=== PATIENT | female | born 1950 | race Caucasian/White ===

== ENCOUNTER → 2024-06-29 14:13 | Outpatient (REF) | payer MEDICARE, OTHER, SELFPAY | LOC: RAD 14:13 | PROVIDERS: ATTENDING PHYSICIAN Student in an Organized Health Care Education/Training Program | DX: M85.89 Other specified disorders of bone density and structure, multiple sites (principal); M85.80 Other specified disorders of bone density and structure, unspecified site | CPT/HCPCS: 77080 ==

== ENCOUNTER → 2024-08-26 11:09 | Outpatient (REF) | payer MEDICARE, OTHER, SELFPAY | LOC: RCS 11:09 | PROVIDERS: ATTENDING PHYSICIAN Student in an Organized Health Care Education/Training Program; FAMILY PHYSICIAN Student in an Organized Health Care Education/Training Program | DX: Z95.2 Presence of prosthetic heart valve (principal) | CPT/HCPCS: 93306 ==

== ENCOUNTER → 2024-09-10 11:23 | Outpatient (REF) | payer MEDICARE, OTHER, SELFPAY | LOC: RAD 11:23 | PROVIDERS: ATTENDING PHYSICIAN Student in an Organized Health Care Education/Training Program | DX: R05.9 Cough, unspecified (principal) | CPT/HCPCS: 71046 ==

== ENCOUNTER → 2025-05-04 11:15 | Outpatient (REF) | payer MEDICARE, OTHER, SELFPAY | LOC: RAD 11:15 | PROVIDERS: ATTENDING PHYSICIAN Family Medicine | DX: R10.84 Generalized abdominal pain (principal); K59.09 Other constipation; R19.7 Diarrhea, unspecified | CPT/HCPCS: 74018 ==

== ENCOUNTER 2025-05-16 17:02 | Emergency (ER) | payer MEDICARE, OTHER, SELFPAY ==
[2025-05-16 17:07] VITALS: BP 148/75
[2025-05-16 17:24] LABS: Hematocrit 35.5 % (37.0-47.0); Hemoglobin 12.2 g/dL (12.0-16.0); Mean Corp Hgb Conc. 34.4 g/dL (33.0-37.0); Mean Corpuscular Volume 90.1 fL (81.0-99.0); Nucleated Red Blood Cells % 0 %; Platelet Count 191 10^3/uL (130-400); Red Cell Dist. Width 13.0 % (11.5-14.5)
[2025-05-16 17:41] LABS: ALT (SGPT) 11 U/L (0-35); AST (SGOT) 23 U/L (14-36); Albumin 4.6 g/dl (3.5-5.0); Alkaline Phosphatase 82 U/L (38-126); Blood Urea Nitrogen 15 mg/dl (7-17); Calcium 9.6 mg/dl (8.4-10.2); Carbon Dioxide 28 mmol/L (22-30); Chloride 95 mmol/L (98-107); Glucose 116 mg/dl (70-99); Lipase 115 U/L (23-300); Potassium 4.4 mmol/L (3.5-5.1); Sodium 129 mmol/L (135-145); Total Protein 7.4 g/dl (6.3-8.2); eGFR > 60.00
[2025-05-16 20:12] VITALS: BMI 32.5
[2025-05-16 20:16] VITALS: BP 180/78
[2025-05-16 21:00] VITALS: BP 158/74
--- NOTE | 2025-05-16 21:34 | ED.GENMED ---
History of Present Illness
General
Chief Complaint: Abdominal Pain
Source: patient
Exam Limitations: none
Time Seen by Provider: 05/16/25 21:24
History of Present Illness
History of Present Illness:
See MDM
Past History
Past History
ED Past Medical History: Other (Parkinsons)
ED Past Surgical History: None
Social History
Tobacco: Non-smoker
Phy Exam
Physical Exam
Physical Exam:
See MDM
Course
Orders/Labs/Results
Orders:
Orders
05/16/25 17:19
Complete Blood Count/With Diff Urgent
Comprehensive Metabolic Panel Urgent
Lipase Urgent
05/16/25 21:34
CT Abd/pelvis W Iv Cont Urgent
Comment:
Reason For Exam: generalized abd pain
Abnormal Lab Results
05/16/25
17:19
RBC 3.94 L 10^6/uL
(4.20-5.40)
Hct 35.5 L %
(37.0-47.0)
Lymphocytes % 19.2 L %
(20.5-51.1)
Sodium 129 L mmol/L
(135-145)
Chloride 95 L mmol/L
(98-107)
Glucose 116 H mg/dl
(70-99)
05/16/25 17:19
05/16/25 17:19
Vital Signs
Initial and Last Documented VS:
Initial Vital Signs
Temp Pulse Resp BP Pulse Ox
97.9 F 70 16 148/75 98
05/16/25 17:07 05/16/25 17:07 05/16/25 17:07 05/16/25 17:07 05/16/25 17:07
Last Documented Vital Signs
Temp Pulse Resp BP Pulse Ox
97.9 F 70 16 145/68 97
05/16/25 17:07 05/16/25 17:07 05/16/25 17:07 05/16/25 23:00 05/16/25 23:00
MDM/Problems Addressed
Differential Diagnosis Includes:
Note:
CHIEF COMPLAINT(S)
Abdominal pain.
HISTORY OF PRESENT ILLNESS
The patient is a 74-year-old female presenting with abdominal pain. She reports a history of both diarrhea and constipation, for which a previous x-ray suggested constipation. She attempted to relieve symptoms with polyethylene glycol (MiraLAX),
which provided partial relief. The pain is primarily localized to the right side of her abdomen and is associated with a sensation of fullness. Pressing on the area exacerbates the pain, particularly in the lower right quadrant. The patient reports
that she has been using medication such as polyethylene glycol daily and lactulose when necessary. She expresses concern about potential underlying causes such as colitis, diverticulitis, or appendicitis. The patient reports a significant event in
her gastroenterological history, having had polyps removed two years ago during a colonoscopy.
PAST MEDICAL AND SURGICAL HISTORY
- Previous colonoscopy with polyp removal two years ago.
PHYSICAL EXAM
General: Alert, no acute distress.
Skin: Warm, dry.
Head: Normocephalic, atraumatic
Neck: Appears supple, trachea midline.
Eyes, Ears, Nose, Mouth, and Throat: Moist mucous membranes
Cardiovascular: No signs of cyanosis
Respiratory: Respirations are non-labored.
Abdomen: Non-distended. Mild tenderness to right lower quadrant and epigastric area without rebound
Musculoskeletal: No deformities
Neurological: No focal neurological deficit observed.
Psychiatric: Cooperative, appropriate mood and affect.
PLAN
A computed tomography (CT) scan of the abdomen and pelvis will be performed to determine if there is significant stool burden or other possible abdominal pathology such as colitis, diverticulitis, or appendicitis.
DIFFERENTIAL DIAGNOSIS
The Differential Diagnosis includes, in no particular order and is not limited to:
- Constipation
- Colitis
- Diverticulitis
- Appendicitis
- Gastroenteritis
- Small bowel obstruction
- Inflammatory bowel disease
- Irritable bowel syndrome
- Bowel ischemia
- Renal colic
SUMMARY OF ENCOUNTER
The patient presented to the emergency department with lower right quadrant abdominal pain, alongside symptoms of diarrhea and constipation potentially related to recent medication changes. A CT scan was ordered to assess the possibility of stool
accumulation or other abdominal pathology. Blood work indicated a normal liver function and lipase levels.
INDEPENDENT REVIEW OF LABS AND INTERPRETATION OF TESTS
My independent review of the Complete Blood Count indicates a normal white blood cell count.
My independent review of the Comprehensive Metabolic Panel shows normal liver function.
My independent review of Lipase indicates normal pancreas function.
MEDICAL DECISION MAKING
-Complexity of Data Reviewed: Chronic conditions affecting care [previous colonoscopy with polyp removal two years ago].
-Data:
Category 1
- My independent review of the Complete Blood Count indicates a normal white blood cell count.
- My independent review of the Comprehensive Metabolic Panel shows normal liver function.
- My independent review of Lipase indicates normal pancreas function.
Category 2
- No additional historians or external records were reviewed.
Category 3
- Discussion of management with other physician, healthcare provider, other source: None mentioned.
-Risk:
Prescription medication was prescribed [polyethylene glycol]
DIAGNOSIS
1. Constipation - ICD-10-CM K59.00
2. Abdominal pain, unspecified site - ICD-10-CM R10.9
3. History of colonic polyps - ICD-10-CM Z86.010
SUMMARY OF ENCOUNTER
The patient, a 74-year-old female with a history of constipation, presented with abdominal pain. Given her history of Parkinsons disease, we evaluated her for potential bowel obstruction, which was ruled out based on clinical examination. An
examination revealed a significant stool burden specifically in the rectal area. We discussed administering an enema, which the patient preferred to manage at home. She expressed comfort with continuing her current regimen of polyethylene glycol
(MiraLAX) and discussed the potential addition of intermittent doses of lactulose.
PLAN
The patient is advised to continue polyethylene glycol daily and consider adding intermittent doses of lactulose for symptom management. She is comfortable with self-administering an enema at home to relieve the stool burden.
INDEPENDENT REVIEW OF LABS AND INTERPRETATION OF TESTS
No specific laboratory tests were mentioned in the encounter.
PATIENT EDUCATION AND COUNSELING
The patient was educated on managing her constipation at home, including the use of an enema and medication adjustments. She was counseled on recognizing worsening symptoms and when to seek further medical attention.
FOLLOW-UP INSTRUCTIONS
The patient should continue with her current medications and return if her symptoms worsen or do not improve.
MEDICATION RECONCILIATION
The patient will continue with polyethylene glycol and consider adding lactulose as advised for constipation management.
MEDICAL DECISION MAKING
-Complexity of Data Reviewed: Chronic conditions affecting care [history of Parkinsons disease, constipation]. Differential diagnosis included: Constipation, small bowel obstruction, inflammatory bowel disease.
-Data:
Category 1
Clinical information was obtained through patient examination to rule out bowel obstruction based on clinical signs.
-Risk:
Prescription medication was prescribed [polyethylene glycol]. Consideration of Admission/Observation: Escalation of care including admission/observation was considered given the complexity and risk of the patients presenting complaint, but
ultimately the patient is safe for outpatient management with close follow-up. Reasoning: No signs of bowel obstruction, patient is comfortable and agreeable with discharge.
DIAGNOSIS
1. Constipation - ICD-10-CM K59.00
2. Abdominal pain, unspecified site - ICD-10-CM R10.9
*Pulse Oximetry
SaO2: 98
Oxygen Mode of Delivery: Room air
Patient hypoxic: no
*Critical Care Note
Total Time (30-74mins, 75-104mins- exclusive of procedures): Not Applicable
ED Attending Note
-
Portions of this chart may have been created with voice recognition software.� Occasional wrong word or��sound alike� substitutions may have occurred due to the inherent limitations of voice recognition software.
Discharge Plan
Departure
Patient Disposition: Home (Routine Discharge)
Date of Disposition: 05/17/25
Time of Disposition: 00:05
Patient with high blood pressure during this ER visit?: No
Discharge Problem:
Constipation
Instructions: Constipation, Adult (DC)
Prescriptions:
New
lactulose 20 gram packet
20 g PO DAILY PRN (Reason: Constipation) Qty: 15 0RF
Referrals:
Stephanie Payne DO [Family Provider, Family Practice]
Activity Restrictions/Additional Instructions:
Please return for any worsening symptoms.
You may return at any time if you have further concerns.
Please follow up with your doctor at the first available appointment, preferably this week.
As we discussed, please take a enema and a dose of lactulose tomorrow. In addition to your daily MiraLAX, please start taking a daily stool softener such as docusate sodium (Colace). If you continue to have constipation issues, you can take a dose
of lactulose daily until symptoms resolved.
Your Prescriptions were sent to the pharmacy on file.
Thank you for choosing [facility].
Interventions
Interventions:
*General Assessment Last Done: 05/16/25 17:07
*Neglect/Abuse Screening Last Done: 05/16/25 17:07
*ED COVID-19 Vaccine History Last Done: 05/16/25 17:07
*ED Influenza Vaccine History Last Done: 05/16/25 17:07
[facility] Risk Assessment Tool Last Done: 05/16/25 20:13
*Risk Screen - Suicide (C-SSRS) Last Done: 05/16/25 17:07
VM-Muvcgq-Sbbxkcfjgb Assessment Last Done: 05/16/25 20:13
Discharge Date and Time
Print Language: [place]IZ[place]
[2025-05-16 23:00] VITALS: BP 145/68
[2025-05-17] VITALS: BP 143/64
== END 2025-05-17 00:24 | disposition home or self-care (01) ==
LOC: EMR 17:02
PROVIDERS: Emergency Medicine; EMERGENCY PHYSICIAN Student in an Organized Health Care Education/Training Program; FAMILY PHYSICIAN Family Medicine
DX: K59.00 Constipation, unspecified (principal); R10.9 Unspecified abdominal pain; G20.A1 Parkinson's disease without dyskinesia, without mention of fluctuations; Z86.0100 Personal history of colon polyps, unspecified
CPT/HCPCS: 99284; 74177; 80053; 83690; 85025; Q9967